=== PATIENT | female | born 1940 | race Caucasian/White ===

== ENCOUNTER → 2017-03-09 | Outpatient (CLI) | payer MEDICARE ==
[~2017-03-09] MED LIST: ACET-2469 PO; CALC-80 PO; FAMO20TA42 PO; LISI10TA PO; LOSA50TA36 PO; MULT1CAP27 PO; MULT1TAB69 PO; OMEP40CA36 PO; PRD10T PO; SIMV40TA4 PO; [UNRECOGNIZED DRUG - CODE] PO
--- NOTE | 2017-03-09 16:04 | Diagnostic Imaging Report ---
INDICATION: Persistent cough. EXAMINATION: PA and lateral chest. FINDINGS: There is a hiatal hernia. The heart size is normal. There are patchy interstitial infiltrates in both lungs. IMPRESSION: Patchy interstitial infiltrates in both lungs, suspicious for interstitial pneumonia. Dictated by: Dictated on workstation # [id number]
--- NOTE | 2017-03-09 17:14 | Diagnostic Imaging Report ---
EXAMINATION: Two views of the left hip. INDICATION: Left hip pain. FINDINGS: There is no fracture, dislocation, or radiopaque foreign body. The joint lining is satisfactory. IMPRESSION: Unremarkable exam. Dictated by: Dictated on workstation # [id number]
== END ==
LOC: RAD 14:21
PROVIDERS: ATTEND Family Medicine
DX: M25.552 Pain in left hip; R05 Cough; R91.8 Other nonspecific abnormal finding of lung field
CPT/HCPCS: 71020; 73502

== ENCOUNTER → 2017-05-05 | Outpatient (CLI) | payer MEDICARE ==
--- NOTE | 2017-05-05 13:33 | Diagnostic Imaging Report ---
PROCEDURE: CT chest without contrast. TECHNIQUE: Multiple contiguous axial images were obtained through the chest without the use of intravenous contrast. INDICATION: Chronic cough. FINDINGS: There are some chronic-appearing interstitial infiltrates throughout both lungs. These are slightly more prominent in the apices and bases as well as the periphery of both lungs. There is no pleural or pericardial fluid. There is no pneumothorax. There are some coronary artery calcifications. There is no pathologically enlarged adenopathy in the chest. There are degenerative changes in the spine. There is a small hiatal hernia. The visualized intra-abdominal structures are unremarkable. IMPRESSION: 1. Chronic-appearing diffuse interstitial infiltrates, more severe in the lung apices and lung bases as well as the periphery of both lungs. This has the appearance of chronic interstitial fibrosis. This could likely be further characterized with high-resolution CT if clinically warranted. 2. Cardiomegaly and coronary artery calcifications. 3. Degenerative changes in the spine. Dictated by: Dictated on workstation # [id number]
[2017-05-05 13:45] LABS: BASOPHILS # (AUTO) 0.1 10^3/uL (0.0-0.1); BASOPHILS % (AUTO) 1 % (0-10); EOSINOPHILS # (AUTO) 0.2 10^3/uL (0.0-0.3); EOSINOPHILS % (AUTO) 2 % (0-10); LYMPHOCYTES # (AUTO) 1.7 X 10^3 (1.0-4.0); LYMPHOCYTES % (AUTO) 16 % (12-44); MEAN CORPUSCULAR HEMOGLOBIN 32 PG (25-34); MEAN CORPUSCULAR HGB CONC 33 G/DL (32-36); MEAN CORPUSCULAR VOLUME 97 FL (80-99); MONOCYTES # (AUTO) 0.6 X 10^3 (0.0-1.0); MONOCYTES % (AUTO) 6 % (0-12); NEUTROPHILS # (AUTO) 7.7 X 10^3 (1.8-7.8); NEUTROPHILS % (AUTO) 75 % (42-75); PLATELET COUNT 285 10^3/uL (130-400); RED BLOOD COUNT 4.35 10^6/uL (4.35-5.85); RED CELL DISTRIBUTION WIDTH 12.4 % (10.0-14.5); WHITE BLOOD COUNT 10.3 10^3/uL (4.3-11.0)
[2017-05-05 14:09] LABS: LYMPHOCYTES % (MANUAL) 21 %; NEUTROPHILS % (MANUAL) 74 %
[2017-05-05 14:10] LABS: ERYTHROCYTE SEDIMENTATION RATE 20 MM/HR (0-30)
[2017-05-06 15:31] LABS: ANCA PATTERN Not Indicated; ANTI NEUTROPHIL CYTOPLASM <1:20 (<1:20)
[2017-05-07 09:31] LABS: ANGIOTENSIN CONVERTING ENZYME 39 U/L (9-67)
[2017-05-09 12:39] LABS: ASPERGILLUS FUMIGATUS NEGATIVE (NEGATIVE); MICROPOLYSPORA FAENI NEGATIVE (NEGATIVE); PIGEON SER NEGATIVE (NEGATIVE); THERMOACTINOMYCES CANDIDUS NEGATIVE (NEGATIVE); THERMOACTINOMYCES VULGARIS NEGATIVE (NEGATIVE)
[2017-05-11 08:00] LABS: SACCHAROMONOSPORA VIRIDIS NEGATIVE (NEGATIVE)
== END ==
LOC: RAD 12:32
PROVIDERS: ATTEND Nurse Practitioner Family
DX: R91.8 Other nonspecific abnormal finding of lung field (principal); I51.7 Cardiomegaly; I25.10 Atherosclerotic heart disease of native coronary artery without angina pectoris; M47.819 Spondylosis without myelopathy or radiculopathy, site unspecified; K44.9 Diaphragmatic hernia without obstruction or gangrene
CPT/HCPCS: 36415; 71250; 82164; 83880; 85007; 85027; 85652; 86021; 86038; 86039; 86141

== ENCOUNTER → 2017-05-13 | Outpatient (CLI) | payer MEDICARE ==
[~2017-05-13] MED LIST changes: +RT-ALBUTEROL SULF 2.5 MG/3 ML PRE-MIX VIAL IH ONE; +RT-ALBUTEROL SULF 2.5 MG/3 ML PRE-MIX VIAL ONE
== END ==
LOC: CARD 12:29
PROVIDERS: ATTEND Nurse Practitioner Family
DX: R53.83 Other fatigue (principal); R06.00 Dyspnea, unspecified; R05 Cough
CPT/HCPCS: 93306; 94060; 94640; 94726; 94729

== ENCOUNTER → 2017-07-14 | Outpatient (CLI) | payer MEDICARE ==
[~2017-07-14] MED LIST changes: -ACET-2469 PO; -LOSA50TA36 PO; -MULT1TAB69 PO; -OMEP40CA36 PO; -PRD10T PO; -RT-ALBUTEROL SULF 2.5 MG/3 ML PRE-MIX VIAL IH ONE; -RT-ALBUTEROL SULF 2.5 MG/3 ML PRE-MIX VIAL ONE; -[UNRECOGNIZED DRUG - CODE] PO
--- NOTE | 2017-07-14 10:46 | Diagnostic Imaging Report ---
PA and lateral views of the chest. INDICATION: Cough, shortness of breath. COMPARISON: 03/09/2017. FINDINGS: There is chronic interstitial thickening seen in the lungs similar to 03/09/2017, exam. There is no definite superimposed infiltrate identified. There is suggestion of a small hiatal hernia. The heart size is at the upper limits of normal. No effusion or pneumothorax. The mediastinum and leobardo appear unremarkable. IMPRESSION: Chronic interstitial scarring. Small hiatal hernia. Dictated by: Dictated on workstation # [id number]
== END ==
LOC: RAD 09:36
PROVIDERS: ATTEND Nurse Practitioner Family
DX: R91.8 Other nonspecific abnormal finding of lung field (principal); K44.9 Diaphragmatic hernia without obstruction or gangrene
CPT/HCPCS: 71020

== ENCOUNTER → 2017-07-17 | Outpatient (CLI) | payer MEDICARE ==
--- NOTE | 2017-07-17 10:56 | Diagnostic Imaging Report ---
PROCEDURE: CT chest without contrast. TECHNIQUE: Multiple contiguous axial images were obtained through the chest without the use of intravenous contrast. INDICATION: Cough. COMPARISON: 05/05/2017. FINDINGS: There are fibrotic changes seen in the lungs with areas of bronchiectasis seen. The findings involve mostly the mid and lower lung zones. There is no particular subpleural predominance and no significant honeycombing is seen. When compared to 05/05/2017, no significant change is seen. There is no mass or suspicious nodule identified. The thoracic aorta is normal in caliber. The heart size is at the upper limits of normal. No pleural or pericardial effusion. There is a moderate-sized hiatal hernia. No mediastinal lymphadenopathy. The hilar vessels are not opacified on this unenhanced exam with no hilar masses or obvious lymphadenopathy. No axillary lymphadenopathy. Sections in the upper abdomen demonstrate hepatic steatosis. The osseous structures demonstrate degenerative changes with mild left convexity scoliosis. IMPRESSION: There are nonspecific fibrotic changes in the lungs noted. Consider the possibility of fibrotic NSIP, chronic hypersensitivity pneumonitis, or potentially sequela of prior repeated infections. Dictated by: Dictated on workstation # [id number]
== END ==
LOC: RAD 08:47
PROVIDERS: ATTEND Nurse Practitioner Family
DX: J84.10 Pulmonary fibrosis, unspecified (principal)
CPT/HCPCS: 71250

== ENCOUNTER 2017-07-22 05:34 | Outpatient (CLI) | payer MEDICARE ==
[~2017-07-22] VITALS: Ht 162.6 cm; Wt 77.1 kg
[2017-07-22] MEDS ORDERED: SIMV40TA4 PO (09:42)
[2017-07-22] MEDS ORDERED: [UNRECOGNIZED DRUG - CODE] PO (09:42)
[2017-07-22] MEDS ORDERED: LOSA50TA36 PO (09:43)
[2017-07-22] MEDS ORDERED: ACET-2469 PO (09:43)
[2017-07-22] MEDS ORDERED: PRD10T PO (09:43)
[2017-07-22] MEDS ORDERED: OMEP40CA36 PO (09:43)
[2017-07-22] MEDS ORDERED: MULT1TAB69 PO (09:43)
== END 2017-07-22 09:46 ==
LOC: PREOP 05:34
PROVIDERS: ATTEND Internal Medicine Critical Care Medicine
DX: Z01.818 Encounter for other preprocedural examination (principal); J84.9 Interstitial pulmonary disease, unspecified; R06.00 Dyspnea, unspecified

== ENCOUNTER 2017-07-29 06:47 | Day surgery (SDC) | payer MEDICARE ==
[~2017-07-29] VITALS: Ht 162.6 cm; Wt 77.1 kg
[~2017-07-29 06:47] MED LIST changes: +ACET-2469 PO; +LOSA50TA36 PO; +MULT1TAB69 PO; +OMEP40CA36 PO; +PRD10T PO; +[UNRECOGNIZED DRUG - CODE] PO
[2017-07-29] MEDS ORDERED: LIDOCAINE PF 1% 2 ML AMP INJ ONE (06:48)
[2017-07-29] MEDS ORDERED: LIDOCAINE 4% INJ (XYLOCAINE) 5ML AMP INJ ONE (06:48)
[2017-07-29] MEDS ORDERED: NS IV 500 ML 500 ML ONE (06:51)
--- OUTSIDE RECORDS SUMMARY | 2017-07-29 06:51 | XMS REPORT | Continuity of Care Document ---
Author Author [facility] Organization [facility] Address Unknown Phone Unavailable Allergies Active Description Code Type Severity Reaction Onset Reported/Identified Relationship to Patient Clinical Status Yes No Known Drug Allergies [id number] Drug Allergy Unknown N/ A 02/19/2010 Medications Problems Date Dx Coded Attending Type Code Diagnosis Diagnosed By 02/23/2015 GERARDO MITCHELL, TAJ R Ot V76.12 11/14/2015 Ot V76.12 11/14/2015 Ot V76.12 11/14/2015 GERARDO MITCHELL, TAJ R Ot V76.12 11/14/2015 GERARDO MITCHELL, TAJ R Ot V76.12 11/15/2015 GERARDO MITCHELL, TAJ R Ot M16.11 11/15/2015 GERARDO MITCHELL, TAJ R Ot M47.896 11/15/2015 GERARDO MITCHELL, TAJ R Ot M76.891 12/04/2015 GERARDO MITCHELL, TAJ R Ot M16.11 12/04/2015 GERARDO MITCHELL, TAJ R Ot M47.896 12/04/2015 GERARDO MITCHELL, TAJ R Ot M76.891 12/04/2015 GERARDO MITCHELL, TAJ R Ot M16.11 12/04/2015 GERARDO MITCHELL, TAJ R Ot M47.896 12/04/2015 GERARDO MITCHELL, TAJ R Ot M76.891 02/07/2016 GERARDO MITCHELL, TAJ R Ot Z12.31 ENCNTR SCREEN MAMMOGRAM FOR MALIGNANT NE 02/07/2016 GERARDO MITCHELL, TAJ R Ot Z12.31 ENCNTR SCREEN MAMMOGRAM FOR MALIGNANT NE 02/26/2016 GERARDO MITCHELL, TAJ R Ot Z12.31 ENCNTR SCREEN MAMMOGRAM FOR MALIGNANT NE 03/09/2017 Ot V76.12 OTH SCREEN MAMMO-MALIGN NEOPLASM OF [place] 03/09/2017 GERARDO MITCHELL, TAJ R Ot V76.12 OTH SCREEN MAMMO-MALIGN NEOPLASM OF [place] 03/09/2017 TAJ CARRILLO MD R Ot V76.12 OTH SCREEN MAMMO-MALIGN NEOPLASM OF [place] 03/09/2017 TAJ CARRILLO MD R Ot Z12.31 ENCNTR SCREEN MAMMOGRAM FOR MALIGNANT NE 03/09/2017 TAJ CARRILLO MD R Ot M16.11 UNILATERAL PRIMARY OSTEOARTHRITIS, RIGHT 03/09/2017 TAJ CARRILLO MD R Ot M47.896 OTHER SPONDYLOSIS, LUMBAR REGION 03/09/2017 TAJ CARRILLO MD R Ot M76.891 OTH ENTHESOPATHIES OF RIGHT LOWER LIMB, 03/27/2017 TAJ CARRILLO MD R Ot M25.552 PAIN IN LEFT HIP 03/27/2017 TAJ CARRILLO MD R Ot R05 COUGH 03/27/2017 TAJ CARRILLO MD R Ot R91.8 OTHER NONSPECIFIC ABNORMAL FINDING OF [place] 04/03/2017 TAJ CARRILLO MD R Ot M25.552 PAIN IN LEFT HIP 04/03/2017 TAJ CARRILLO MD R Ot R05 COUGH 04/03/2017 TAJ CARRILLO MD R Ot R91.8 OTHER NONSPECIFIC ABNORMAL FINDING OF [place] 05/07/2017 SUMANTH REZA APRN Ot I25.10 ATHSCL HEART DISEASE OF [place] CORONARY 05/07/2017 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 [address] [employer] Ot I51.7 CARDIOMEGALY 05/07/2017 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 [address] [employer] Ot K44.9 DIAPHRAGMATIC HERNIA WITHOUT OBSTRUCTION 05/07/2017 SUMANTH REZA APRN Ot M47.819 SPONDYLOSIS WITHOUT MYELOPATHY OR RADICU 05/07/2017 SUMANTH REZA APRN Ot R91.8 OTHER NONSPECIFIC ABNORMAL FINDING OF [place] 05/12/2017 Ot V76.12 OTH SCREEN MAMMO-MALIGN NEOPLASM OF [place] 05/12/2017 TAJ CARRILLO MD R Ot V76.12 OTH SCREEN MAMMO-MALIGN NEOPLASM OF [place] 05/12/2017 TAJ CARRILLO MD R Ot V76.12 OTH SCREEN MAMMO-MALIGN NEOPLASM OF [place] 05/12/2017 TAJ CARRILLO MD R Ot Z12.31 ENCNTR SCREEN MAMMOGRAM FOR MALIGNANT NE 05/12/2017 GERARDO MITCHELL, TAJ R Ot M16.11 UNILATERAL PRIMARY OSTEOARTHRITIS, RIGHT 05/12/2017 GERARDO MITCHELL, TAJ R Ot M47.896 OTHER SPONDYLOSIS, LUMBAR REGION 05/12/2017 GERARDO MITCHELL, TAJ R Ot M76.891 OTH ENTHESOPATHIES OF RIGHT LOWER LIMB, 05/12/2017 GERARDO MITCHELL, TAJ R Ot M25.552 PAIN IN LEFT HIP 05/12/2017 GERARDO MITCHELL, TAJ R Ot R05 COUGH 05/12/2017 GERARDO MITCHELL, TAJ R Ot R91.8 OTHER NONSPECIFIC ABNORMAL FINDING OF [place] 05/12/2017 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 [address] [employer] Ot I25.10 ATHSCL HEART DISEASE OF [place] CORONARY 05/12/2017 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 [address] [employer] Ot I51.7 CARDIOMEGALY 05/12/2017 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[address] [address] [employer] Ot K44.9 DIAPHRAGMATIC HERNIA WITHOUT OBSTRUCTION 05/12/2017 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 [address] [employer] Ot M47.819 SPONDYLOSIS WITHOUT MYELOPATHY OR RADICU 05/12/2017 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[address] [address] [employer] Ot R91.8 OTHER NONSPECIFIC ABNORMAL FINDING OF [place] 05/27/2017 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[employer] [address] [employer]MS Ot I25.10 ATHSCL HEART DISEASE OF [place] CORONARY 05/27/2017 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[employer] [address] [employer]MS Ot I51.7 CARDIOMEGALY 05/27/2017 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[address] FORMS Ot K44.9 DIAPHRAGMATIC HERNIA WITHOUT OBSTRUCTION 05/27/2017 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[address] FORMS Ot M47.819 SPONDYLOSIS WITHOUT MYELOPATHY OR RADICU 05/27/2017 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[address] [address] FORMS Ot R91.8 OTHER NONSPECIFIC ABNORMAL FINDING OF [place] 06/03/2017 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[employer] [address] FORMS Ot I25.10 ATHSCL HEART DISEASE OF [place] CORONARY 06/03/2017 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[employer] [address] FORMS Ot I51.7 CARDIOMEGALY 06/03/2017 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[address] [address] FORMS Ot K44.9 DIAPHRAGMATIC HERNIA WITHOUT OBSTRUCTION 06/03/2017 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[address] [address] FORMS Ot M47.819 SPONDYLOSIS WITHOUT MYELOPATHY OR RADICU 06/03/2017 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[address] [address] [employer]MS Ot R91.8 OTHER NONSPECIFIC ABNORMAL FINDING OF [place] 07/10/2017 LIBIA, SUMANTH Vasyl [employer] [address] [employer] Ot R05 COUGH 07/10/2017 JOSE REZAINE Vasyl [employer] [address] [employer] Ot R06.00 DYSPNEA, UNSPECIFIED 07/10/2017 JOSE REZAINE Vasyl [employer] [address] [employer] Ot R53.83 OTHER FATIGUE 07/16/2017 JOSE REZAINE Vasyl [employer]M SET[employer] [address] [employer] Ot K44.9 DIAPHRAGMATIC HERNIA WITHOUT OBSTRUCTION 07/16/2017 LIBIA, SUMANTH Vasyl [employer] [address] [employer] Ot R91.8 OTHER NONSPECIFIC ABNORMAL FINDING OF [place] 07/17/2017 LIBIA, SUMANTH Vasyl [employer] [address] [address] [employer] Ot R05 COUGH 07/17/2017 JOSE REZAINE Vasyl [employer] [address] [address] [employer]MS Ot R06.00 DYSPNEA, UNSPECIFIED 07/17/2017 JOSE REZAINE Vasyl [employer] [address] [employer] Ot R53.83 OTHER FATIGUE 07/20/2017 LIBIA SUMANTH Vasyl [employer] [address] [employer] Ot J84.10 PULMONARY FIBROSIS, UNSPECIFIED Procedures Results Encounters ACCT No. Visit Date/Time Discharge Status Pt. Type Provider Facility Loc./Unit Complaint [id number] 07/22/2017 05:34:00 2016 09:46:00 DIS Outpatient SHAWN MENA DO [facility] PREOP J84.9,R06.00 [id number] 07/17/2017 08:47:00 2016 23:59:59 CLS Outpatient 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[address] [address] [employer] [facility] RAD R05 CHRONIC COUGH [id number] 07/14/2017 09:36:00 2016 23:59:59 CLS Outpatient 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[address] [employer] [facility] RAD R84.9, R91.8, R06.00, R05 [id number] 05/13/2017 12:29:00 2016 23:59:59 CLS Outpatient 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[address] [employer] [facility] CARD LUNG INFILTRATE [id number] 05/05/2017 12:32:00 2016 23:59:59 CLS Outpatient 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[address] [employer] [facility] RAD CHRONIC COUGH LUNG INFILTRATE [id number] 03/09/2017 14:21:00 2016 23:59:59 CLS Outpatient TAJ CARRILLO MD [facility] RAD M25.552 R05 [id number] 02/05/2016 12:40:00 2015 23:59:59 CLS Outpatient TAJ CARRILLO MD [facility] RAD SCREENING [id number] 11/14/2015 12:39:00 2015 23:59:59 CLS Outpatient TAJ CARRILLO MD [facility] RAD HIP PAIN [id number] 02/02/2015 10:42:00 2014 23:59:59 CLS Outpatient TAJ CARRILLO MD [facility] RAD SCREENING [id number] 10/12/2013 08:34:00 2013 23:59:59 CLS Outpatient TAJ CARRILLO MD [facility] RAD SCREENING [id number] 07/29/2017 06:47:00 ACT Outpatient SHAWN MENA DO [facility] J84.9,R06.00 [id number] 10/05/2012 10:21:00 Document Registration [id number] 10/14/2010 08:30:00 Document Registration
[2017-07-29] MEDS ORDERED: MIDAZOLAM 2 MG/2 ML (VERSED) VIAL ONE ×3 (07:21→07:22)
[2017-07-29] MEDS ORDERED: fentaNYL INJECTION 100 MCG/2 ML AMP ONE (07:22)
[2017-07-29] MEDS ORDERED: NS IV 500 ML 500 ML IV SCH (07:30)
[2017-07-29] MEDS: fentaNYL INJECTION 100 MCG/2 ML AMP IVP PRN ×2 (07:41→07:44)
[2017-07-29] MEDS: MIDAZOLAM 2 MG/2 ML (VERSED) VIAL IVP PRN ×3 (07:42→07:52)
--- NOTE | 2017-07-29 08:03 | Pulmonary Procedures ---
Pulmonary Procedures Date of Procedure Date of Service: Jul 29, 2017 Bronch Bronchoscopy with bronchoalveolar lavage (BAL), transbronchial washes and, brushes. Preop DX ILD Postop DX: same Complications: none After informed consent obtained and formal time out pt was sedated using Fentanyl and Versed. Bronchoscope was advanced through the right nare and vocal cords. 1% lidocaine was used to anesthetize vocal cords, epiglottis, kyrie, and left/right main stem bronchus. An anatomical tour was undertaken down to the segmental bronchi bilaterally. No endobronchial lesions noted. From the RML a bronchoalveolar lavage (BAL), transbronchial washes and, brushes were obtained. Pt tolerated procedure well. No complications noted. Stat CXR is pending. SHAWN MENA DO Jul 29, 2017 08:03
--- NOTE | 2017-07-29 08:04 | Pre-Op Note & Conscious Sedat ---
Pre-Operative Progress Note H&P Reviewed The H&P was reviewed, patient examined and no changes noted. Date H&P Reviewed: Jul 29, 2017 Time H&P Reviewed: 08:04 Conscious Sedation Pre-Proced Time Reviewed: 08:03 ASA Class: 3 Airway Mallampati Classification: (cher-ae heights appropriate class) I. II. III, IV Lungs Heart ASA score ASA 1: a normal healthy patient ASA 2: a patient with a mild systemic disease (mid diabetes, controlled hypertension, obesity ASA 3: a patient with a severe systemic disease that limits activity (angina , COPD, prior Myocardial infarction) ASA 4: a patient with an incapacitating disease that is a constant threat to life (CHF, renal failure) ASA 5: a moribund patient not expected to survive 24 hrs. (ruptured aneurysm) ASA 6: a declared brain patient whose organs are being harvested. For emergent operations, add the letter E after the classification Grade 2 Sedation Plan: Analgesia, Amnesia, Plan communicated to team members, Discussed options with patient/fam, Discussed risks with patient/fam Note The patient is an appropriate candidate to undergo the planned procedure, sedation, and anesthesia. The patient immediately re-assessed prior to indication. SHAWN MENA DO Jul 29, 2017 08:04
--- NOTE | 2017-07-29 08:04 | Progress Note-Pre Operative ---
Pre-Operative Progress Note H&P Reviewed The H&P was reviewed, patient examined and no changes noted. Date Seen by Provider: Jul 29, 2017 Time Seen by Provider: 08:03 Date H&P Reviewed: Jul 29, 2017 Time H&P Reviewed: 08:03 Pre-Operative Diagnosis: SHAWN PARR DO Jul 29, 2017 08:04
[2017-07-29 08:20] VITALS: BP 127/71
[2017-07-29 08:45] VITALS: BP 120/75
--- NOTE | 2017-07-29 08:46 | Diagnostic Imaging Report ---
Portable supine radiograph of the chest. COMPARISON: 07/14/2017. INDICATION: Shortness of breath. Post bronchoscopy evaluation. FINDINGS: There is background chronic interstitial scarring seen in the lungs with mild infiltrates or atelectasis seen in the bases and decreased lung volumes when compared to the previous exam. The heart size is mildly enlarged. No significant effusion. No pneumothorax. IMPRESSION: Bilateral lower lung infiltrates or atelectasis superimposed on background fibrotic changes. Cardiomegaly. Dictated by: Dictated on workstation # [id number]
[2017-07-29 08:52] VITALS: BP 121/80
[2017-07-29 09:04] VITALS: BP 121/80
--- NOTE | 2017-07-29 17:39 | Diagnostic Imaging Report ---
INDICATION: Bronchoscopy. EXAMINATION: Intraoperative fluoroscopy view was obtained. FINDINGS: Bronchoscope is overlying the right lung base. 37 seconds of fluoroscopy time was used. IMPRESSION: Intraoperative fluoroscopy was used for bronchoscopy per Dr. Jay Gómez. Dictated by: Dictated on workstation # [id number]
== END 2017-07-29 08:50 | disposition home or self-care (01) ==
LOC: SDC 06:47 → ENDO 08:50
PROVIDERS: ATTEND Internal Medicine Critical Care Medicine
DX: J84.9 Interstitial pulmonary disease, unspecified (principal); R09.02 Hypoxemia; R91.8 Other nonspecific abnormal finding of lung field; R06.00 Dyspnea, unspecified; J30.2 Other seasonal allergic rhinitis; R53.83 Other fatigue
CPT/HCPCS: 71010; 87070; 87101; 87116; 87205; 94640

== ENCOUNTER → 2017-09-25 | Outpatient (CLI) | payer MEDICARE ==
--- NOTE | 2017-09-25 11:21 | Diagnostic Imaging Report ---
PROCEDURE: MRI lumbar spine. TECHNIQUE: Multiplanar, multisequence MRI of the lumbar spine was performed without contrast. INDICATION: Chronic low back pain increasing in severity. COMPARISON: No prior studies are available for comparison. There appears to be a transitional vertebral body. The fused segment inferiorly will be considered L5-S1 for counting purposes. Curvature is normal. There is minimal anterolisthesis of L5 on S1. There is abnormal edema throughout the superior one half of the L2 vertebral body. There is some central compression present at this level and findings are consistent with an acute superior endplate fracture of L2 with mild central compression. No retropulsion is seen. Remaining lumbar vertebrae demonstrate normal signal. There are chronic central compressions of the L3 and L4 vertebral bodies. There is some generalized disc desiccation noted. Conus is unremarkable at the T12-L1 level. T12-L1: No central canal or neuroforaminal stenosis is identified. L1-2: Unremarkable. L2-L3: There is ligamentous thickening present with truffle configuration of the sac. AP dimensions remain within normal limits. No neuroforaminal stenosis is identified. L3-L4: There is ligamentous thickening with moderate central canal narrowing. There is narrowing of bilateral lateral recesses and mild bilateral neuroforaminal narrowing. L4-L5: There is ligamentous thickening. Central canal is widely patent. Neural foramina are patent. L5-S1: There is fusion at this level. The central canal is patent. There is mild bilateral neuroforaminal narrowing. IMPRESSION: 1. Acute superior endplate fracture L2 vertebral body with mild central compression. No retropulsion is seen. 2. Generalized lumbar spondylosis with central canal and neuroforaminal narrowing described level by level above. Dictated by: Dictated on workstation # [id number]
== END ==
LOC: RAD 09:05
PROVIDERS: ATTEND Pain Medicine Interventional Pain Medicine
DX: M48.56XA Collapsed vertebra, not elsewhere classified, lumbar region, initial encounter for fracture (principal); M48.061 Spinal stenosis, lumbar region without neurogenic claudication; M47.26 Other spondylosis with radiculopathy, lumbar region
CPT/HCPCS: 72148